=== PATIENT | female | born 1975 | race Caucasian/White ===

== ENCOUNTER 2017-10-08 13:40 | Emergency (ER) | payer SELFPAY ==
[2017-10-08] MEDS: diazePAM 5 MG TABLET PO (14:11)
[2017-10-08] MEDS: HYDROcodone/APAP 5/325MG 1 TAB TABLET PO (14:11)
== END 2017-10-08 15:23 | disposition home or self-care (01) ==
LOC: ER 13:40
DX: R07.81 Pleurodynia (principal); R07.89 Other chest pain; R05 Cough; Z98.51 Tubal ligation status
CPT/HCPCS: 71101; 99284